=== PATIENT | female | born 1990 | race Caucasian/White ===

== ENCOUNTER 2017-06-08 12:31 | Emergency (ER) | payer MEDICAID, OTHER ==
[2017-06-08 12:39] VITALS: BP 116/66; BMI 29.8
--- NOTE | 2017-06-08 13:12 | DR.GENAD ---
HPI - PCP Primary Care Physician: Dr. Noguera - Complaint/Symptoms Chief Complaint:: Pt is 13 weeks and has c/o vaginal itching and burning associated with thick white discharge. Took Monastat 3 day treatment last week and symptom resolved for three days. Yesterday symptoms returned so she got the 7 day monastat treatment and can't tolerated it because it "sets her on fire." Self Treatment fo Chief Complaint: home monastat treatment - Nurses notes reviewed Nurses Notes Review: Yes - Source History Provided: Patient - Mode of Arrival Mode of Arrival: Ambulatory - Timing Onset of Chief Complaint: 06/07/17 PMH - PMH Past Medical History: No Past Surgical History: No Surgical History: No History - Family History History of Family Medical Conditions: Yes Family Medical History: Cancer, Coronary Artery Disease, Hypertension - Social History Does patient currently use any type of tobacco product: No Have you used tobacco products in the last 12 months: No Type of Tobacco Use: None Does any household member use tobacco: No Alcohol Use: None Do you use any recreational Drugs:: No Lives With: Family Lives Where: Home - infectious screening In the last 2 months have you had wt loss of >10#?: NO Have you had fever, night sweats or hemotysis?: No Have you traveled outside the country in the last 6 months?: No Isolation: Standard ROS - Review of Systems Constitutional: No Symptoms Reported Eyes: No Symptoms Reported ENTM: No Symptoms Reported Respiratoy: No Symptoms Reported Cardiovascular: No Symptoms Reported Gastrointestinal/Abdominal: No Symptoms Reported Genitourinary: Discharge Neurological: No Symptoms Reported Musculoskeletal: No Symptoms Reported Integumentary: No Symptoms Reported Hematologic/Lymphatic: No Symptoms Reported Endocrine: No Symptoms Reported Psychiatric: No Symptoms Reported All Other Systems: Reviewed and Negative PE - Vital Signs Vitals: Temperature 97.8 F Pulse Rate 98 Respiratory Rate 20 Blood Pressure 116/66 O2 Sat by Pulse Oximetry 100 - General Limitations: No Limitations General Appearance: Alert, In No Apparent Distress - Head Head Exam: Normal Inspection - Eyes Eye exam: Normal Appearance - ENT ENT Exam: Normal Exam - Neck Neck Exam: Normal Inspection - Chest Chest Inspection: Normal Inspection - Respiratory Respiratory Exam: Normal Lung Sounds Bilat - Cardiovascular Cardiovascular Exam: Regular Rate, Normal Rhythm - Abdominal Exam Abdominal Exam: Normal Inspection, Normal Bowel Sounds, Soft - Extremities Extremities Exam: Normal Inspection - Back Back Exam: Normal Inspection - Psychiatric Psychiatric Exam: Normal Affect - Skin Skin Exam: Warm, Dry, Intact, Normal Color - Other Exam Other Exam: EXAM: There is no lseions noted on the labia. Vagina mucosa is pink and moist. The cervical Os closed and there is no cervical lesion(s) noted. There vagina vailt has a dusky, cream discharge noted. ROR - Labs Reviewed Laboratory: 06/08/17 13:34 Vaginal Wet Prep - Final 06/08/17 13:30 Vaginal ILIANA Preparation - Final - Diagnosis Discharge Problem: Protozoal disease affecting in first trimester - Discharge Plan Disposition: 01 HOME, SELF-CARE Condition: Stable - Follow ups/Referrals Follow ups/Referrals: Joaquín Noguera [Primary Care Provider] - 3 days - Instructions
[2017-06-08 14:44] LABS: BILIRUBIN,URINE NEGATIVE (NEGATIVE); BLOOD/HEMOGLOBIN,URINE 1+ (NEGATIVE); GLUCOSE, URINE NEGATIVE (NEGATIVE); KETONES,URINE 3+ (NEGATIVE); LEUKOCYTE ESTERASE ,URINE 3+ (NEGATIVE); NITRITES,URINE NEGATIVE (NEGATIVE); PROTEIN,URINE NEGATIVE (NEGATIVE); UROBILINOGEN,URINE NORMAL (NORMAL)
[2017-06-08 14:45] LABS: APPEARANCE,URINE SLIGHTLY HAZY (CLEAR); COLOR,URINE YELLOW (YELLOW)
[2017-06-08 15:01] LABS: BACTERIA,URINE TRACE /HPF (NEGATIVE); RBC,URINE 0-2 /HPF (NONE SEEN); SQUAMOUS EPITHELIAL CELL,UR MANY /HPF (NEGATIVE)
[2017-06-08 15:02] LABS: AMORPHOUS SEDIMENT,UR 1+ /HPF (NEGATIVE); MUCUS,URINE MODERATE /HPF (NEGATIVE); RENAL EPITHELIAL CELLS,URINE RARE /HPF (NEGATIVE); TRICHOMONAS,URINE FEW /HPF (NEGATIVE)
[2017-06-08 16:28] LABS: CHLAMYDIA TRACH URINE NOT DETECTED (NOT DETECT)
== END 2017-06-08 15:06 | disposition home or self-care (01) ==
LOC: ER 12:45
DX: N89.8 Other specified noninflammatory disorders of vagina (principal); A00-B99 Certain infectious and parasitic diseases; Z3A.13 13 weeks gestation of pregnancy
CPT/HCPCS: 81001; 87086; 87210; 87491; 87591; 99282; 99284

== ENCOUNTER 2017-07-08 14:33 | Emergency (ER) | payer OTHER ==
[2017-07-08 14:38] VITALS: BP 117/62; BMI 29.9
--- NOTE | 2017-07-08 15:44 | DR.EXTPAIN ---
HPI - PCP Primary Care Physician: nfd - Complaint/Symptoms Chief Complaint:: patient stated she has a rash on her body that is spreading and getting worse. pt stated she 4 months also - Nurses notes reviewed Nurses Notes Review: Yes - Source History Provided: Patient - Mode of arrival Mode of Arrival: Ambulatory - Timing Onset of Chief Complaint: 06/24/17 PMH - PMH Past Medical History: No Past Surgical History: No Surgical History: No History - Family History History of Family Medical Conditions: Yes Family Medical History: Cancer, Coronary Artery Disease, Hypertension - Social History Does patient currently use any type of tobacco product: No Have you used tobacco products in the last 12 months: No Type of Tobacco Use: None Does any household member use tobacco: No Alcohol Use: None Do you use any recreational Drugs:: No Lives With: Family Lives Where: Home - infectious screening In the last 2 months have you had wt loss of >10#?: NO Have you had fever, night sweats or hemotysis?: No Have you traveled outside the country in the last 6 months?: No Isolation: Standard PE - Vital Signs Vitals: Temperature 98.6 F Pulse Rate 96 Respiratory Rate 16 Blood Pressure 117/62 O2 Sat by Pulse Oximetry 100 - Diagnosis Discharge Problem: Skin rash, Pruritus - Discharge Plan Condition: Stable Prescriptions: Diphenhydramine HCl [BENADRYL 25 MG TAB/CAP *] 25 mg PO Q6H PRN #20 tab PRN Reason: Allergy/Itching Hydrocortisone Crm 1% [HYDROCORTISONE (TOPICAL) CREAM 1% *] 1 applic EXT TID # 30 gm - Follow ups/Referrals Follow ups/Referrals: NFD,None [Primary Care Provider] - 1 day - Instructions Instructions: Rash, [id number], Pruritus Additional Instructions: RETURN TO ED IF WORSE.
== END 2017-07-08 16:28 | disposition home or self-care (01) ==
LOC: ER 14:39
DX: L29.9 Pruritus, unspecified (principal); R21 Rash and other nonspecific skin eruption
CPT/HCPCS: 99284

== ENCOUNTER 2017-07-09 08:43 | Emergency (ER) | payer OTHER ==
[2017-07-09 08:47] VITALS: BP 146/67; BMI 29.5
[2017-07-09 09:24] LABS: BILIRUBIN,URINE NEGATIVE (NEGATIVE); BLOOD/HEMOGLOBIN,URINE 5+ (NEGATIVE); GLUCOSE, URINE NEGATIVE (NEGATIVE); KETONES,URINE NEGATIVE (NEGATIVE); LEUKOCYTE ESTERASE ,URINE 3+ (NEGATIVE); NITRITES,URINE NEGATIVE (NEGATIVE); PROTEIN,URINE 2+ (NEGATIVE); UROBILINOGEN,URINE 2+ (NORMAL)
[2017-07-09 09:25] LABS: COLOR,URINE YELLOW (YELLOW)
[2017-07-09 09:27] LABS: APPEARANCE,URINE CLEAR (CLEAR)
--- NOTE | 2017-07-09 09:30 | DR.VAGB ---
HPI - Time Seen Time seen: 09:35 - PCP Primary Care Physician: KVNG - Complaint Chief Complaint:: Pztient presents for evaluation of vaginal bleeding this AM s/ p voiding. She is a 26 y/o single female LMP 03/03/2017.. 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 She denies any intercourse or previous vaginal infection. - Source History Provided: Patient - Mode of Arrival Mode of Arrival: Ambulatory - Timing Onset of Chief Complaint: 07/09/17 PMH - PMH Past Medical History: No Past Surgical History: No Surgical History: No History - Family History History of Family Medical Conditions: Yes Family Medical History: Cancer, Coronary Artery Disease, Hypertension - Social History Does patient currently use any type of tobacco product: No Have you used tobacco products in the last 12 months: No Type of Tobacco Use: None Does any household member use tobacco: No Alcohol Use: None Do you use any recreational Drugs:: No Lives With: Family Lives Where: Home - infectious screening In the last 2 months have you had wt loss of >10#?: NO Have you had fever, night sweats or hemotysis?: No Have you traveled outside the country in the last 6 months?: No Isolation: Standard ROS - Review of Systems Eyes: No Symptoms Reported ENTM: No Symptoms Reported Respiratoy: No Symptoms Reported Cardiovascular: No Symptoms Reported Gastrointestinal/Abdominal: No Symptoms Reported Genitourinary: No Symptoms Reported Neurological: No Symptoms Reported Musculoskeletal: No Symptoms Reported Integumentary: No Symptoms Reported Hematologic/Lymphatic: No Symptoms Reported Endocrine: No Symptoms Reported Psychiatric: No Symptoms Reported All Other Systems: Reviewed and Negative PE - Vital Signs Vitals: Pulse Rate 106 Respiratory Rate 20 Blood Pressure 146/67 O2 Sat by Pulse Oximetry 99 - General General Appearance: Alert - Head Head Exam: Normal Inspection, Atraumatic - Eyes Eye exam: Normal Appearance, PERRL, EOMI - ENT ENT Exam: Normal Exam - Neck Neck Exam: Normal Inspection, Full ROM - Chest Chest Inspection: Normal Inspection - Respiratory Respiratory Exam: Normal Lung Sounds Bilat Respiratory Exam: Bilateral Clear to Auscultation - Cardiovascular Cardiovascular Exam: Regular Rate, Normal Rhythm - Abdominal Exam Abdominal Exam: Normal Inspection, Normal Bowel Sounds, Distention (gravid uterus) Abdominal Tenderness: negative: RUQ, RLQ, LUQ, LLQ, Epigastrium, Suprapubic, Diffuse, Mild, Moderate, Severe, Other - Rectal Rectal Exam: Deferred - Genitourinary External Exam: Female: Deferred : Speculum Exam (Female): Deferred : Bimanual Exam (female): Deferred - Extremities Extremities Exam: Normal Inspection, Full ROM - Back Back Exam: Normal Inspection, Full ROM - Neurologic Neurological Exam: Alert, Oriented X3, CN II-XII Intact - Skin Skin Exam: Warm, Dry ROR - Labs Reviewed Laboratory Results Reviewed?: Yes (UA:bld 5+,Leuk 3+,Prot 2+) Laboratory: HCG, Quant [id number] mIU/mL (0-6) H 07/09/17 10:05 Specimen Type Clean catch urine 07/09/17 09:16 Urine Color Yellow (YELLOW) 07/09/17 09:16 Urine Appearance Clear (CLEAR) 07/09/17 09:16 Urine pH 6.0 (5.0 - 8.0) 07/09/17 09:16 Ur Specific Adams 1.025 (1.000-1.030) 07/09/17 09:16 Urine Protein 2+ (NEGATIVE) 07/09/17 09:16 Urine Glucose (UA) Negative (NEGATIVE) 07/09/17 09:16 Urine Ketones Negative (NEGATIVE) 07/09/17 09:16 Urine Occult Blood 5+ (NEGATIVE) 07/09/17 09:16 Urine Nitrite Negative (NEGATIVE) 07/09/17 09:16 Urine Bilirubin Negative (NEGATIVE) 07/09/17 09:16 Urine Urobilinogen 2+ (NORMAL) 07/09/17 09:16 Ur Leukocyte Esterase 3+ (NEGATIVE) 07/09/17 09:16 - XRAY XRAY Interpreted by: Radiologist (US: A viable single intrauterine is identified with heart tones of 140 beats per minute. Amniotic fluid volume is subjectively normal. No gross anomaly is seen, but continued clinical correlation and follow up recommended. EFW 243gm.Impression: A viable single intrauterine with an average ultrasound age of 18 weeks 4 days corresponding to an estimated date joby delivery of December 06, 2017) - Diagnosis Discharge Problem: with 18 completed weeks gestation UTI (urinary tract infection) during Qualifiers: Trimester: second trimester Qualified Code(s): O23.42 - Unspecified infection of urinary tract in , second trimester - Discharge Plan Condition: Stable - Follow ups/Referrals Follow ups/Referrals: Joaquín Noguera [Primary Care Provider] - 3 days - Instructions
--- NOTE | 2017-07-09 11:19 | US ---
HISTORY: with new onset vaginal bleeding and cramping Study: Limited OB ultrasound greater than 14 weeks Comparison: None Technique: Multiple grayscale and color flow Doppler images of the pelvis were obtained with focused evaluation of the fetus. Findings: A viable single intrauterine is identified with heart tones of 140 beats per minute. Amniotic fluid volume is subjectively normal. No gross anomaly is seen, but continued clinical correlation and follow-up recommended. EFW 243 g. Value Estimated Gestational Age BPD 4.2 cm 18 weeks 5 days HC 15.1 cm 18 weeks 1 day AC 12.8 cm 18 weeks 3 days FL 2.8 cm 18 weeks 5 days IMPRESSION: A viable single intrauterine with an average ultrasound age of 18 weeks 4 days correspondin g to an estimated date of delivery of December 06, 2017. Reported By:
== END 2017-07-09 11:52 | disposition home or self-care (01) ==
LOC: ER 08:49
DX: O23.42 Unspecified infection of urinary tract in pregnancy, second trimester (principal); Z3A.18 18 weeks gestation of pregnancy
CPT/HCPCS: 36415; 76815; 81003; 84702; 87086; 99282; 99284